=== PATIENT | female | born 1955 | race Asian ===

== ENCOUNTER → 2021-07-21 | Outpatient (CLI) | payer OTHER | END | disposition home or self-care (01) | LOC: Rad HDHVI 10:02 | PROVIDERS: ATTEND Internal Medicine Cardiovascular Disease | DX: R07.89 Other chest pain (principal) | CPT/HCPCS: 93306 ==

== ENCOUNTER → 2021-07-27 | Outpatient (CLI) | payer OTHER ==
[~2021-07-27] VITALS: Ht 154.9 cm; Wt 54.4 kg
== END | disposition home or self-care (01) ==
LOC: Rad HDHVI 08:39
PROVIDERS: ATTEND Internal Medicine Cardiovascular Disease
DX: I25.10 Atherosclerotic heart disease of native coronary artery without angina pectoris (principal); R94.31 Abnormal electrocardiogram [ECG] [EKG]; E11.9 Type 2 diabetes mellitus without complications; E78.5 Hyperlipidemia, unspecified; R07.89 Other chest pain; R06.00 Dyspnea, unspecified
CPT/HCPCS: 78452; 93017; 96374; A9500

== ENCOUNTER 2022-03-04 19:25 | Emergency (ER) | payer MEDICAID, OTHER ==
[~2022-03-04] VITALS: Ht 165.1 cm; Wt 57.0 kg
[2022-03-05 04:53] VITALS: BP 122/68
== END 2022-03-05 04:56 | disposition home or self-care (01) ==
LOC: ER 19:25
DX: S27.818A Other injury of esophagus (thoracic part), initial encounter (principal); Z88.2 Allergy status to sulfonamides; X58.XXXA Exposure to other specified factors, initial encounter; Y93.89 Activity, other specified; Y92.89 Other specified places as the place of occurrence of the external cause; Y99.8 Other external cause status
CPT/HCPCS: 70360; 70490

== ENCOUNTER → 2024-10-09 | Day surgery (SDC) | payer MEDICAID ==
[2024-10-02 12:02] LABS: Urine Bacteria None Seen /hpf (None Seen)
[2024-10-02 12:18] LABS: Basophils # (auto) 0 10 ^3/uL (0-0.2); Basophils % (auto) 0.7 % (0.0-2.0); Eosinophils # (auto) 0.1 10 ^3/uL (0-0.8); Eosinophils % (auto) 2.4 % (0.0-7.0); Hematocrit 45.9 % (36.0-46.0); Hemoglobin 15.6 g/dL (12.2-16.2); Lymphocytes # (auto) 1.5 10 ^3/uL (0.4-5.4); Lymphocytes % (auto) 25.4 % (10.0-50.0); Mean Corpuscular Hemoglobin 29.7 pg (28.0-32.0); Mean Corpuscular Hgb Conc. 33.9 g/dL (32.0-36.0); Mean Corpuscular Volume 87.5 fL (80.0-100.0); Monocytes # (auto) 0.6 10 ^3/uL (0-1.3); Monocytes % (auto) 9.5 % (0.0-12.0); Neutrophils # (auto) 3.7 10 ^3/uL (1.6-8.6); Nucleated Red Blood Cells % 0.1 %; Platelet Count (auto) 248 10^3/uL (140-450); Red Blood Cells 5.25 10^6/uL (4.0-5.20); Red Cell Distribution Width 13.2 % (11.8-14.3)
[2024-10-02 12:30] LABS: INR 0.97 (0.9-1.15); Partial Thromboplastin Time 25.6 SEC (24.5-34.5); Prothrombin Time 10.3 sec (9.3-11.8)
[2024-10-02 13:13] LABS: Urine Blood Negative /uL (Negative); Urine Clarity Clear (Clear); Urine Color Colorless (Yellow); Urine Protein, UAD Negative (Negative); Urine Specific Gravity 1.006 (1.001-1.035); Urine Squamous Epithelial Cell None Seen /hpf (<5); Urine Urobilinogen Normal (Negative); Urine WBC 1 /HPF (0-5); Urine pH 6.5 (5.0-9.0)
[2024-10-02 13:15] LABS: Alanine Aminotransferase 15 U/L (7-40); Alkaline Phosphatase 82 U/L (46-116); Anion Gap 9 (5-15); Aspartate Aminotransferase 21 U/L (13-40); BUN/Creatinine Ratio 25.3 (10.0-20.0); Bilirubin, Total 0.7 mg/dL (0.2-1.0); Blood Urea Nitrogen 20 mg/dL (9-23); Carbon Dioxide 29 mmol/L (20-31); Chloride 101 mmol/L (98-107); Potassium 5.1 mmol/L (3.5-5.1); Sodium 139 mmol/L (136-145); Total Protein 7.8 g/dL (5.7-8.2)
[2024-10-02 13:17] LABS: Albumin 5.2 g/dL (3.2-4.8); Calcium 10.6 mg/dL (8.7-10.4); Glucose 114 mg/dL (74-106)
[~2024-10-09] VITALS: Ht 152.4 cm; Wt 49.9 kg
[~2024-10-09] MED LIST: ATOR10TA52 PO; BUPIVACAINE 0.5% P/F INJ 10 ML VIAL ONE; DexAMETHasone SOD PHOS 10MG/1ML VIAL INJ ONE; EMPA1TAB7 PO; LEVO25TA6 PO; LIDOCAINE 1% INJ PF 5ML AMP ONE; METF-370 PO; METOCLOPRAMIDE HCL 5MG/ml INJ 2ml VIAL ONE; MIDAZOLAM HCL 2MG/2ML 2ml VIAL (1mg/ml) ONE; ONDANSETRON HCL 4 MG/2 ML VIAL ONE; PROPOFOL 10 MG/ML 20 ML IV ONE; [UNRECOGNIZED DRUG - CODE] PO; ceFAZolin 1GM VL ONE; diphenhdrAMINE HCL 50 MG/1 ML VL ONE; fentaNYL CITRATE 100 MCG/2 ML VL ONE
--- NOTE | 2024-10-09 09:12 | DVHHP2 ---
History Allergies: Coded Allergies: Sulfa Antibiotics (Verified Allergy, Unknown, 07/27/21) Chief Complaint: Right foot pain Present Illness(Onset/Duration Patient is a 69-year-old female who presents to clinic for a follow-up on right bunion deformity and tailor's bunion. Patient states she previously had a bunion surgery and developed calluses. She states she is interested to undergo the surgery at this time as she completed the eye surgery and teeth removal. She currently takes ibuprofen for pain. 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 Patient denies any trauma to the area. Patient denies any other pedal complaints at this time. Physical Exam Vital Signs Vital Signs Date Time Temp Pulse Resp B/P (MAP) Pulse Ox O2 Delivery O2 Flow Rate FiO2 10/09/24 08:05 97.7 76 14 115/64 (81) 96 97.7 Other DERMATOLOGIC EXAM: - Skin is warm, smooth, and supple bilaterally. - No erythema noted to the foot and ankle bilaterally. - HPK sub 5th, between 1st and 2nd - No other discolorations, lesions, or open wounds noted bilaterally. VASCULAR EXAM: - DP and PT pulses are palpable bilaterally. - CHARGE LPN is brisk to all digits. - No edema noted to the leg, foot, and ankle bilaterally. NEUROLOGIC EXAM: - Normal light touch sensation to the superficial peroneal, deep peroneal, sural, saphenous, and tibial nerve branches. - Protective sensation is intact as tested with a 5.07 10g [place] Monofilament bilaterally. - No paresthesia noted on percussion of Tibial Nerve in the Tarsal Tunnel bilaterally. MUSCULOSKELETAL EXAM: - Moderate bunion present to the right foot. - The bunion is tracking. - Tenderness is present over the eminence and within the 1st MTPJ. - Muscle strength is 5/5 and active motion is pain-free and symmetrical bilaterally Impressions/Description Right foot bunion and tailors bunion Plan ASSESSMENT: Patient is a 69 year old who was seen in clinic for a follow-up of right foot bunion deformity and tailor's bunion. PLAN: - The patients chart was reviewed, clinical findings were discussed with the patient, the etiologies of the conditions were discussed in detail, and a rodriguez tment plan was agreed to at this time, with both oral and written instructions provided. - Discussed the etiology, natural progression as well as conservative and surgical treatment of bunion deformity. - I recommend wide, low-heeled shoes that provide adequate space around the big toe. - We discussed activity modification and different ways to offload the painful areas with bunion pads, splints and cushioning. - Instructed on icing technique for pain isolated to bump of big toe joint. - Surgical options were discussed with the patient including a MIS bunion and tailor's bunionectomy. - Daughter was called and informed about the planned surgery. - Informed patient that she needs to be in postop shoe for 4-6 weeks following her bunion surgery. All questions were answered and concerns addressed to the patient's satisfaction. The patient was given the phone number to the clinic and was told how to make contact with the clinic should any concerns or questions arise. Patient understands that if any questions or concerns arise prior to the next appointment, we should be contacted immediately. FOLLOW-UP: Patient will return to clinic in 2 weeks after the surgery. The patient is scheduled for right foot MIS bunionectomy and Tailor's bunionectomy, TBD. We reviewed the surgical procedure, the expected recovery and the patient's needs post-operatively. The patient was also given written and verbal pre-operative and post-operative instructions. The benefits of surgery were reviewed which include reduction in pain and increased function. The risks of surgery were reviewed with the patient and include but are not limited to infection, pain, bleeding, numbness, scarring, delayed wound healing, loss of soft tissue or bone, non-union, malunion or delayed-union of bone, joint stiffness, painful hardware, failure of hardware, and potential need for additional surgery. Loss of limb or life. Risks associated with anesthesia. All of the patient's questions were answered to their satisfaction. Informed consent was obtained, signed, and is in the patient's chart. No guarantees were given or implied. I anticipate maintaining the patient non-weight bearing? in a fracture boot post-operatively. A prescription for post-operative pain medication will be dispensed for Oxycodone 5mg and Zofran 4mg. Please note that the database on DOPL was accessed and the patient was assessed for prior prescriptions. In prescribing opioid therapy for the management of pain, I have reviewed with the patient?: 1) the reasons why this medication is necessary, as well as realistic goals for pain and function; 2) alternative treatment options available, including; 3) the risks of addiction and overdose associated with opioid medications; 4) the dangers of taking opioids with alcohol, benzodiazepines, and other CHILD AND ADOLESCENT PSYCHOLOGIST depressants; and 5) other risks associated with the use of this medication. I discussed the procedure today with the patient and answered their questions to their satisfaction. We discussed the post op period as well as the time of non- weight bearing anticipated. We talked about the risks, benefits and alternatives. I discussed the risks of the procedure which include but is not limited to infection, damage to neurovascular structures, complex regional pain syndrome, DVT, pulmonary embolism as well as anesthesia related risks. Despite these the patient would like to proceed. Informed consent was obtained and we offered a copy to the patient. Absolutely no guarantees were given or implied. I explained that I cannot guarantee this will alleviate all pain and symptoms and their expectations appear realistic. I assessed their DVT risk and I will go ahead and prophylaxis with 81mg Aspirin twice per day. I will see the patient 14 days post op. INDICATIONS FOR PROCEDURE: The patient with diagnosis as outlined above. The patient has attempted and failed conservative treatment as outlined in preoperative clinic notes. Possible postoperative complications were reviewed with the patient in the pre-op holding area. The patient desires to proceed with surgery and signed the consent form. No guarantees were given or implied, but it is expected that the patient will have a favorable outcome. It is with this understanding that we proceed. BRIAN ROBLEDO DPM Oct 09, 2024 09:12
--- NOTE | 2024-10-09 09:42 | DVHOP2 ---
Operative Report - 2 Report Details Date: 10/09/24 Preop Diagnosis: 1. Right foot bunion 2. Right foot tailors bunion 3. Right foot pain Postop Diagnosis: Same as preop Surgeon: Brian Robledo MD Anesthesiologist: See anesthesia Anesthesia: Mac Implant: 0.062 K wire x 2 Consent: The patient was informed of the risks and benefits of the procedure. These include but are not limited to complications of anesthesia, postoperative infection, incomplete relief of symptoms, recurrence of symptoms, damage to blood vessels, nerves and tendons, deep venous thrombosis, pulmonary embolism and possible need for repeat surgery in the future. Complications: None Estimated Blood Loss: Minimal Fluids: See anesthesia Findings: Consistent with the diagnosis Indications for Surgery: Worsening right foot pain Name of Procedure Performed 1. Right foot MIS Bunionectomy (10142) 2. Right foot bone spur removal first metatarsal (38010) 3. Right foot MIS tailors bunionectomy (42121) 4. Right foot bone spur removal 5th metatarsal (39555) Procedure Details Procedure Details: PRE-PROCEDURE INFORMATION: In the pre-op holding area, the extremity to be operated on was clearly marked and the patient verified correct laterality of the marking. The patient was transferred to the OR table and placed in a supine position. A timeout was performed in which identification of the correct patient, procedure, location, and materials was done. The right foot and leg were prepped and draped in normal sterile fashion. DESCRIPTION OF PROCEDURE: Attention was directed to the right 1st metatarsophalangeal joint where a stab incision was made at the neck of the 1st metatarsal. Care was taken to avoid damage the neurovascular and tendinous structures. Using intraoperative fluoroscopy and an MIS per, an osteotomy was then made at the neck of the 1st metatarsal. The metatarsal head was then shifted into position aligning the sesamoid bones over the fragment. Using a 6 2 K-wire, the wire was then driven down the shaft of the 1st metatarsal to hold the head in place until the osteotomy has healed. Using the bur, the medial spurring of the metatarsal head was then removed. Fluoroscopy verified proper placement of hardware as well as correction of previous bunion deformity. Attention was directed to the right lateral fifth metatarsal head where a stab incision was made. This incision was deepened through blunt and sharp dissection. Care was taken to avoid damage to neurovascular structures throughout dissection. The incision was carried to the level of the fifth metatarsal head where on intraoperative fluoroscopy as well as preoperative x- rays, it was noted there was no significantly increased lateral deviation angle of the fifth metatarsal, but the lateral aspect of the fifth metatarsal head appeared to be prominent. This indicated that the patient would benefit from an ostectomy of the metatarsal head without osteotomy. Using an MIS bur, an os teotomy was made across the neck of the metatarsal head. Using a 0.62 K wire, the wire was then placed down the shaft of the 5th metatarsal holding the head in the appropriate position. Using a, the lateral spurring of the metatarsal head was then removed. It was noted on intraoperative fluoroscopy, there was significant reduction of deformity All surgical wounds were irrigated copiously with saline and closed in layers with the aforementioned suture material. A dry sterile dressing was placed on the surgical extremity. The patient was placed in a postop shoe POSTOPERATIVE INFORMATION: The patient tolerated the above noted procedure and anesthesia well and was transferred to the PACU with vital signs stable, and vascular status intact with capillary refill intact to all digits. Postoperative instructions reviewed in detail with the patient with written instructions provided. Patient will return to clinic in approximately 10-14 days for first postoperative visit. Patient has the number of the clinic and was instructed to call prior to that time should any problems, questions, or concerns arise. Condition Good Disposition Home BRIAN ROBLEDO DPM Oct 09, 2024 09:42
[2024-10-09 09:45] VITALS: PULSE 79; RESP 11; TEMP 98.2; O2SAT 98
[2024-10-09 10:10] VITALS: PULSE 71; RESP 14; O2SAT 100
[2024-10-09] MEDS: ONDANSETRON HCL 4 MG/2 ML VIAL IV ONE (10:57)
[2024-10-09] MEDS: fentaNYL CITRATE 100 MCG/2 ML VL IV PRN (10:57)
[2024-10-09 11:40] VITALS: BP 122/60; PULSE 74; RESP 12; O2SAT 100
== END | disposition home or self-care (01) ==
LOC: SUR 07:28
PROVIDERS: ATTEND Podiatrist
DX: M20.11 Hallux valgus (acquired), right foot (principal); M21.621 Bunionette of right foot; M21.611 Bunion of right foot; Z88.2 Allergy status to sulfonamides; M77.8 Other enthesopathies, not elsewhere classified; E11.9 Type 2 diabetes mellitus without complications; E78.00 Pure hypercholesterolemia, unspecified; Z79.84 Long term (current) use of oral hypoglycemic drugs; Z98.41 Cataract extraction status, right eye; Z98.42 Cataract extraction status, left eye
CPT/HCPCS: 28110; 28296; 36415; 80053; 81001; 82962; 85025; 85610; 85730; C1713; J0690; J1100; J1200; J2250; J2405; J2704; J2765; J3010; J3490